=== PATIENT | male | born 1985 | race American Indian/Alaskan Native ===

== ENCOUNTER 2021-05-24 07:36 | Emergency (ER) | payer BC ==
--- NOTE | 2021-05-24 08:44 | Emergency Department Report ---
ED General Adult HPI - General Chief complaint: Medical Clearance Stated complaint: HEART RACING Source: patient Mode of arrival: Ambulatory Limitations: No Limitations - History of Present Illness Initial comments: The patient was evaluated in the emergency department for symptoms described in the history of present illness. He/she was evaluated in the context of the global COVID-19 pandemic, which necessitated consideration that the patient might be at risk for infection with the virus that causes COVID-19. Institutional protocols and algorithms that pertain to the evaluation of patients at risk for COVID-19 are in a state of rapid change based on information released by regulatory bodies including the CDC and federal and state organizations. These policies and algorithms were followed during the patient's care in the emergency department. Please note that these policies, procedures and recommendations changed on a rapid basis. 36-year-old -Iranian male presents to the emergency room stating that he feels that his drink may have been spiked yesterday. Patient states he comes in feeling like he is shaky inside, legs feel tingling, reports he is very agitated not able to sleep pacing. Patient denies any nausea no vomiting or chest pain shortness of breath. Patient states that he did have many alcoholic drinks yesterday. He states that when he was drinking it did not seem to affect him. He states he went home tried to lay down and could not sleep. He states that he was having palpitations racing thoughts. He denies any past medical history currently takes no medications on a daily basis and has no known drug allergies. - Related Data Allergies Allergy/AdvReac Type Severity Reaction Status Date / Time No Known Allergies Allergy Verified 05/24/21 08:04 ED Review of Systems ROS: Stated complaint: HEART RACING Other details as noted in HPI ED Past Medical Hx - Surgical History Past Surgical History?: Yes Additional Surgical History: wrist surgery - Social History Smoking Status: Never Smoker Substance Use Type: Alcohol ED Physical Exam - General Limitations: No Limitations General appearance: alert, in no apparent distress - Head Head exam: Present: atraumatic, normocephalic - Eye Eye exam: Present: normal appearance - ENT ENT exam: Present: mucous membranes dry, normal external ear exam - Neck Neck exam: Present: normal inspection, full ROM. Absent: lymphadenopathy - Respiratory Respiratory exam: Present: normal lung sounds bilaterally. Absent: respiratory distress, accessory muscle use - Cardiovascular Cardiovascular Exam: Present: tachycardia - GI/Abdominal GI/Abdominal exam: Present: soft, normal bowel sounds - Extremities Exam Extremities exam: Present: normal inspection, full ROM. Absent: tenderness, pedal edema - Back Exam Back exam: Present: normal inspection - Neurological Exam Neurological exam: Present: alert, oriented X3, normal gait. Absent: motor sensory deficit - Psychiatric Psychiatric exam: Present: normal affect, normal mood - Skin Skin exam: Present: warm, dry, intact, normal color. Absent: rash ED Course Vital Signs 05/24/21 05/24/21 07:48 10:59 Temperature 98.8 F 98.5 F Pulse Rate 131 H 88 Respiratory 20 18 Rate Blood Pressure 165/95 151/100 O2 Sat by Pulse 99 99 Oximetry ED Medical Decision Making - Lab Data Result diagrams: 05/24/21 08:39 05/24/21 08:39 Laboratory Tests 05/24/21 05/24/21 05/24/21 08:39 08:39 08:39 WBC 11.3 H RBC 5.09 H Hgb 17.0 H Hct 48.6 H MCV 96 H MCH 34 H MCHC 35 H RDW 12.9 L Plt Count 190 Lymph % (Auto) 16.8 Polk % (Auto) 4.6 Eos % (Auto) 0.1 Baso % (Auto) 0.9 Lymph # (Auto) 1.9 Polk # (Auto) 0.5 Eos # (Auto) 0.0 Baso # (Auto) 0.1 Seg Neutrophils % 77.6 H Seg Neutrophils # 8.8 H Sodium 139 Potassium 4.2 Chloride 102.1 Carbon Dioxide 22 Anion Gap 19 BUN 8 L Creatinine 1.2 Estimated GFR > 60 BUN/Creatinine Ratio 7 Glucose 108 H Calcium 9.5 Total Bilirubin 0.30 AST 24 ALT 26 Alkaline Phosphatase 55 Total Protein 7.9 Albumin 4.8 Albumin/Globulin Ratio 1.5 Urine Opiates Screen Urine Methadone Screen Acetaminophen 5.0 L Ur Barbiturates Screen Ur Phencyclidine Scrn Ur Amphetamines Screen U Benzodiazepines Scrn Urine Cocaine Screen U Marijuana (THC) Screen Drugs of Abuse Note Plasma/Serum Alcohol 05/24/21 05/24/21 08:39 09:45 WBC RBC Hgb Hct MCV MCH MCHC RDW Plt Count Lymph % (Auto) Polk % (Auto) Eos % (Auto) Baso % (Auto) Lymph # (Auto) Polk # (Auto) Eos # (Auto) Baso # (Auto) Seg Neutrophils % Seg Neutrophils # Sodium Potassium Chloride Carbon Dioxide Anion Gap BUN Creatinine Estimated GFR BUN/Creatinine Ratio Glucose Calcium Total Bilirubin AST ALT Alkaline Phosphatase Total Protein Albumin Albumin/Globulin Ratio Urine Opiates Screen Negative Urine Methadone Screen Negative Acetaminophen Ur Barbiturates Screen Negative Ur Phencyclidine Scrn Negative Ur Amphetamines Screen Presumptive positive U Benzodiazepines Scrn Negative Urine Cocaine Screen Negative U Marijuana (THC) Screen Negative Drugs of Abuse Note Disclamer Plasma/Serum Alcohol < 0.01 - Medical Decision Making 36-year-old -Iranian male presents to the emergency room stating that he feels that his drink may have been spiked yesterday. Patient states he comes in feeling like he is shaky inside, legs feel tingling, reports he is very agitated not able to sleep pacing. Patient denies any nausea no vomiting or chest pain shortness of breath. Patient states that he did have many alcoholic drinks yesterday. He states that when he was drinking it did not seem to affect him. He states he went home tried to lay down and could not sleep. He states that he was having palpitations racing thoughts. He denies any past medical history currently takes no medications on a daily basis and has no known drug allergies. CBC CMP lipase blood alcohol level acetaminophen level EKG UDS 0939: Reassessed patient he states that this feels like he is ready to go inquired about had to given a urine he states no that he was going to go get one now. Critical care attestation.: If time is entered above; I have spent that time in minutes in the direct care of this critically ill patient, excluding procedure time. ED Disposition Clinical Impression: Palpitation, Concern about drug reaction without diagnosis, Accidental poisoning by amphetamines Disposition: 01 HOME / SELF CARE / HOMELESS Is pt being admited?: No Does the pt Need Aspirin: No Condition: Stable Additional Instructions: Labs are stable. Urine drug test shows you have amphetamines on board. Does show some dehydration. I recommend to increase her fluid intake advance her diet as tolerated and rest. Stay away from an alcohol use. Side effects of amphetamines can be fast heart rate jittery feeling like your arms be agitated not able to sleep. [facility] Forms: Work/School Release Form(ED)
[2021-05-24 09:01] LABS: Basophils # (Auto) 0.1 K/mm3 (0.0-0.1); Basophils % (Auto) 0.9 % (0.0-1.8); Eosinophils % (Auto) 0.1 % (0.0-4.3); Hematocrit 48.6 % (35.5-45.6); Lymphocytes # (Auto) 1.9 K/mm3 (1.2-5.4); Lymphocytes % (Auto) 16.8 % (13.4-35.0); Mean Corpuscular HGB Conc 35 % (32-34); Mean Corpuscular Volume 96 fl (84-94); Monocytes # (Auto) 0.5 K/mm3 (0.0-0.8); Monocytes % (Auto) 4.6 % (0.0-7.3); Platelet Count 190 K/mm3 (140-440); Red Blood Count 5.09 M/mm3 (3.65-5.03); Red Cell Distribution Width 12.9 % (13.2-15.2)
[2021-05-24 09:23] LABS: Alanine Aminotransferase 26 units/L (7-56); Albumin 4.8 g/dL (3.9-5); BUN/Creatinine Ratio 7; Blood Urea Nitrogen 8 mg/dL (9-20); Calcium 9.5 mg/dL (8.4-10.2); Hemolysis Index 14
[2021-05-24] MEDS ORDERED: SODIUM CHLORIDE 0.9% 1000 ML 1,000 ML IV ONE (10:39)
[2021-05-24 10:47] LABS: Benzodiazepines Screen,Urine Negative; Cannabinoid Screen,Urine Negative; Cocaine Screen,Urine Negative; Methadone Screen,Urine Negative; Opiate Screen,Urine Negative
[2021-05-24 11:07] LABS: Amphetamine Screen,Urine PRESUMPTIVE POSITIVE
[2021-05-24 11:52] VITALS: BP 143/104
--- NOTE | 2021-06-02 10:16 | Electrocardiograph Report ---
[facility] Test Date: 2021-05-24 Test Time: 08:35:50 Pat Name: JAIME MONTERO Department: Room: Gender: M [employer]: SUDHA : 1985 Requested By: CHERY COPELAND Order Number: [id number] Reading MD: Sonny Matthews Measurements Intervals [place] Rate: 115 P: 70 AL: 112 QRS: 50 QRSD: 67 T: 11 QT: 294 QTc: 408 Interpretive Statements Sinus tachycardia No previous ECG available for comparison Electronically Signed On 06-02-2021 10:15:50 EDT by Sonny Matthews
== END 2021-05-24 11:52 | disposition home or self-care (01) ==
LOC: ED 07:36
DX: T43.621A Poisoning by amphetamines, accidental (unintentional), initial encounter (principal); R00.2 Palpitations; Z98.890 Other specified postprocedural states; Y92.89 Other specified places as the place of occurrence of the external cause
CPT/HCPCS: 36415; 80053; 80307; 85025; 93005; 96360; 99283; J7030; 80320; G0480